=== PATIENT | male | born 1945 | race Caucasian/White ===

== ENCOUNTER → 2019-10-01 14:50 | Outpatient (CLI) | payer OTHER, SELFPAY ==
[2019-10-01 18:18] LABS: Prostate Specific Ag, Diagnost 0.222 ng/ml (0.0-4.0)
== END ==
PROVIDERS: Visit Provider Urology
DX: C61 Malignant neoplasm of prostate (principal)
CPT/HCPCS: 36415; 84153

== ENCOUNTER → 2020-10-01 14:39 | Outpatient (CLI) | payer OTHER, SELFPAY ==
[2020-10-01 16:28] LABS: Prostate Specific Ag, Diagnost 0.265 ng/ml (0.0-4.0)
== END ==
PROVIDERS: Visit Provider Urology
DX: C61 Malignant neoplasm of prostate (principal)
CPT/HCPCS: 36415; 84153

== ENCOUNTER → 2021-10-07 14:06 | Outpatient (CLI) | payer MEDICARE, SELFPAY ==
[2021-10-08 04:08] LABS: Prostate Specific Ag, Diagnost 0.249 ng/ml (0.0-4.0)
== END ==
PROVIDERS: PCP Student in an Organized Health Care Education/Training Program; Visit Provider Urology
DX: C61 Malignant neoplasm of prostate (principal)
CPT/HCPCS: 36415; 84153